=== PATIENT | female | born 1970 | race Caucasian/White ===

== ENCOUNTER 2022-10-01 15:25 | Emergency (ER) | payer OTHER, SELFPAY ==
[2022-10-01 15:26] VITALS: BP 182/86; PULSE 94; RESP 18; TEMP 36.4; O2SAT 95; BMI 42.1
--- NOTE | 2022-10-01 15:31 | EKG12_ITS ---
Test Reason : CP Blood Pressure : / mmHG Vent. Rate : 069 BPM Atrial Rate : 069 BPM P-R Int : 158 ms QRS Dur : 086 ms QT Int : 402 ms P-R-T Axes : 035 075 062 degrees QTc Int : 430 ms Normal sinus rhythm with sinus arrhythmia Nonspecific ST abnormality Abnormal ECG Confirmed by SEDA RIGGS, MIRI ([id number]), business editor ERICA WILKES ([id number]) on 10/03/2022 10:27:07 A M Referred By: CAROLINA Confirmed By:ARACELI STACK MD
--- NOTE | 2022-10-01 15:37 | NURSING ---
NO OLD EKGS
--- NOTE | 2022-10-01 16:00 | RAD_ITS ---
STUDY: X-RAY CHEST REASON FOR EXAM: Female, 52 years old. Chest pain TECHNIQUE: Portable, upright, AP chest x-ray COMPARISON: None. FINDINGS: The lungs are clear and expanded. There is no demonstrated pleural abnormality. Normal size heart. Normal mediastinum and paula. Normal visualized pulmonary arteries. Normal visualized aortic arch and descending thoracic aorta. There is no demonstrated abnormality of the visualized soft tissue structures of the upper abdomen. RAD/Chest 1 View (Portable) IMPRESSION: No acute abnormal cardiopulmonary finding. Electronically Signed: Herbert Hill MD at 16:28 EST ,
[2022-10-01 16:17] LABS: Absolute Lymphocyte Count 2.99 X10^3/uL (0.83-4.51); Absolute Neutrophil Count 6.6 X10^3/uL (2.0-7.7); Basophil# 0.06 X10^3/uL; Basophil% 0.6 % (0-1); Eosinophil# 0.31 X10^3/uL; Eosinophils% 2.9 % (0-5); Hematocrit 40.2 % (37-47); Hemoglobin 13.2 g/dL (12.0-15.0); Lymphocyte # 2.99 X10^3/ul (0.83-4.51); Lymphocyte % 28.2 % (19-41); Mean Corp Hgb Conc 32.8 g/dL (32-36); Mean Corpuscular Hgb 28.8 pg (27.0-32.0); Mean Corpuscular Volume 87.6 fL (81-99); Mean Platelet Vol. 11.2 fl (6.2-12.0); Monocyte# 0.58 X10^3/uL; Monocyte% 5.5 % (0-10); NRBC Flagged by Analyzer 0 % (0-5); Neutrophil # 6.63 X10^3/uL (2.7-7.7); Neutrophil % 62.5 % (47-70); Platelet Count 293 K/mm3 (150-450); RBC Distribution Width CV 13.5 % (11.6-14.6); RBC Distribution Width SD 42.8 fl (35.1-43.9); Red Blood Count 4.59 M/mm3 (4.2-5.4); White Blood Count 10.6 K/mm3 (4.4-11.0)
[2022-10-01 16:38] LABS: Anion Gap 4 (5-15); BUN 12 mg/dL (7-18); BUN/Creat Ratio 13.7 RATIO (10-20); Calcium,Total 9.7 mg/dL (8.5-10.1); Chloride 101 mmol/L (98-107); Creatinine, Serum 0.88 mg/dL (0.55-1.02); EST Glomerular Filtration Rate 72 mL/min (>60); Est Glom Filt Rate - Afr Amer 87 mL/min (>60); Estimated Creatinine Clearance 70.01 ml/min; Glucose 102 mg/dL (74-106); Potassium 3.4 mmol/L (3.5-5.1); Sodium Level 136 mmol/L (136-145); Troponin-I HS 6 pg/mL (3.0-54.0)
--- NOTE | 2022-10-01 16:44 | ED.VIS.CHEST ---
HPI History of Present Illness Chief Complaint: Chest Pain Informant: patient and spouse/S.O. Narrative Narrative: Presents with persistent globus sensation in her throat for the past week. Intermittent right-sided chest tightness that would last minutes. Occasional lightheaded symptoms today had pain across her lower chest. That lasted 5 minutes. She states dyspnea with this. No recent cough. History of hypertension hyperlipidemia denies diabetes. Denies family history of MIs at young age but denies tobacco history. No history of stress test. Symptoms currently resolved. No recent travel surgeries or immobilizations. No history of PE or DVT. She reported started on her blood pressure cholesterol medicines 2 months ago. CVD Risk Factors: Positive for Hypertension and Hypercholesterolemia PE Risk Factors: Negative for Recent Travel/Surgery, Recent Immobilization or Prior DVT or PE PFSH PFSH Allergy/AdvReac Type Severity Reaction Status Date / Time Environmental Allergies: Allergy Rash Verified 10/01/22 15:29 Uncoded [metal] Surgical History (Updated 10/01/22 @ 17:21 by Zeynep Gonzales) History of hysterectomy Social History Smoking Status: Never smoker ROS ROS ED Constitutional Constitutional ED: Denies chills, fever(s) or sweats Eyes Eyes: Denies change in vision ENT ENT ED: Denies dysphagia or sore throat Cardiovascular Cardiovascular: Reports chest pain; Denies leg edema, palpitations or racing heartbeat Respiratory/Chest Respiratory/Chest: Reports dyspnea; Denies cough or dyspnea on exertion Gastrointestinal Gastrointestinal: Denies abdominal pain, diarrhea, nausea or vomiting Genitourinary Genitourinary ED: Denies dysuria, hematuria or urinary frequency Musculoskeletal Musculoskeletal: Denies back pain, extremity pain or neck pain Integumentary Denies rash or wounds Neurologic Neurologic: Denies headache(s), paresthesias or weakness EXAM Physical Exam Const Vital Signs: 10/01/22 15:26 10/01/22 17:20 10/01/22 17:20 Temperature 97.6 F L Temperature Source Temporal Pulse Rate 94 63 Respiratory Rate 18 17 Respiratory Effort Respiratory Pattern Blood Pressure 182/86 H Blood Pressure Mean 118 Pulse Ox 95 100 Oxygen Delivery Method Room Air Room Air Room Air 10/01/22 17:20 10/01/22 17:22 10/01/22 19:09 Temperature Temperature Source Pulse Rate 65 Respiratory Rate 19 H Respiratory Effort Normal Non-Labored Respiratory Pattern Normal Blood Pressure 130/62 H 126/69 H Blood Pressure Mean 84 88 Pulse Ox 98 Oxygen Delivery Method Room Air Positive well nourished and well developed General Appearance ED: well developed and NAD HEENT Reports moist mucous membranes HEENT Narrative: No posterior pharyngeal erythema or swelling. No stridor airway patent.. normocephalic and atraumatic Eyes PERRL, EOMs intact bilaterally and conjunctivae normal General Eye ED: Yes normal appearance of both eyes Neck no lymphadenopathy and supple General: Negative for tenderness Chest Wall Chest: Negative for tenderness Resp normal respiratory effort and normal air movement Effort and Inspection: symmetric chest movement; Negative for respiratory distress Cardio regular rate, regular rhythm and no murmurs Peripheral Pulses: pulses 2+ throughout GI normal to inspection, nondistended, normoactive bowel sounds and non-tender Palpation: Negative for guarding or rebound tenderness present Back/Spine no CVA tenderness and no thoracic nor lumbar tenderness Extremity normal to inspection General Extremety ED: Negative for edema or tenderness General Extremity: Negative for edema Neuro oriented x3 and no sensory deficits noted Sensorium / Orientation: awake and alert Skin no rashes or lesions noted and no wounds Heart Score History: Slightly/Non-Suspicious ECG: Normal Age: >45 - <65 years Risk Factors: 1 or 2 Risk Factors Troponin: </= Normal Limit Score: 2 MDM MDM MDM Narrative Medical decision making narrative: Patient presents with transient chest pains. EKG normal. Cardiac work-up troponin x2 negative. Chest x-ray reviewed by myself read by radiology shows no acute process. Potassium 3.4 orally replaced. Elevated blood pressure on arrival however improved without any interventions. Likely situational. Patient discharged with return precautions otherwise outpatient follow-up for further testing. All questions were answered. Lab Data Attestation: I reviewed the patient's lab results. Labs: Laboratory Results - last 24 hr 10/01/22 10/01/22 10/01/22 15:55 15:55 17:55 WBC 10.6 RBC 4.59 Hgb 13.2 Hct 40.2 MCV 87.6 MCH 28.8 MCHC 32.8 RDW Std Deviation 42.8 RDW Coeff of Lakshmi 13.5 Plt Count 293 MPV 11.2 Immature Gran % (Auto) 0.300 Neut % (Auto) 62.5 Lymph % (Auto) 28.2 [place] % (Auto) 5.5 Eos % (Auto) 2.9 Baso % (Auto) 0.6 Absolute Neuts (auto) 6.6 Absolute Lymphs (auto) 2.99 Nucleated RBC % 0 Sodium 136 Potassium 3.4 L Chloride 101 Carbon Dioxide 31.0 Anion Gap 4 L BUN 12 Creatinine 0.88 Estim Creat Clear Calc 70.01 Est GFR (MDRD) Af Amer 87 Est GFR (MDRD) Non-Af 72 BUN/Creatinine Ratio 13.7 Glucose 102 Calcium 9.7 Troponin I High Sens 6 6 Radiography Diagnostic Testing: Clinical Impression(s) from Imaging Studies Chest X-Ray 10/01/22 16:00 IMPRESSION: No acute abnormal cardiopulmonary finding. Electronically Signed: Herbert Hill MD at 16:28 EST , EKG Initial EKG: Attestation: I personally reviewed and interpreted this EKG as follows: Comments: Sinus rate of 69, no ST or T wave changes. Discharge Plan Triage Chief Complaint: Chest Pain ED Provider: Yeison Navarro Dx/Rx/DC Orders Clinical Impression: Chest pain, History of hypertension, History of hyperlipidemia, Acute hypokalemia Instructions: ED Chest Pain, Uncertain Cause Primary Care Provider: Margarito Manuel Referrals: Margarito Manuel MD [Primary Care Provider] - 3-5 Days Activity Restrictions/Additional Instructions: Negative cardiac work-up. Follow-up with your doctor for further testing. Return if any worsening symptoms. Disposition Disposition: Home, Self Care Discharge Date/Time: 10/01/22 19:19
[2022-10-01] MEDS: Potassium Chloride Oral Tablet 20 MEQ PO (17:16)
[2022-10-01 17:20] VITALS: PULSE 63; RESP 17; O2SAT 100
[2022-10-01 17:22] VITALS: BP 130/62
[2022-10-01 18:21] LABS: Troponin-I HS 6 pg/mL (3.0-54.0)
[2022-10-01 19:09] VITALS: BP 126/69; PULSE 65; RESP 19; O2SAT 98
== END 2022-10-01 19:19 | disposition home or self-care (01) ==
PROVIDERS: Emergency Provider Emergency Medicine; PCP Family Medicine; Visit Provider Emergency Medicine
DX: R07.9 Chest pain, unspecified (principal); E78.5 Hyperlipidemia, unspecified; I10 Essential (primary) hypertension; E87.6 Hypokalemia
CPT/HCPCS: 71045; 80048; 84484; 85025; 93005; 99284; A4216